=== PATIENT | male | born 1950 | race Caucasian/White ===

== ENCOUNTER → 2024-04-03 | Outpatient (CLI) | payer MEDICARE, OTHER ==
--- NOTE | 2024-04-03 08:48 | CTL ---
EXAMINATION TYPE: CT Low Dose Lung DATE OF EXAM ORDERED: 04/03/2024 History: Lung cancer screening CT DLP: 109.[address] CTDI: 2.4 mGy Automated exposure control for dose reduction was used. Comparison: None TECHNIQUE: Low dose computed tomography scan was performed through the chest at 1 mm thick sections and reconstructed images in multiple planes at 1 mm and [address] DIAGNOSTIC QUALITY: Satisfactory FINDINGS: There are scattered sub-4 mm pulmonary nodules.. There is no suspicious lung mass or nodule. There is no abnormal airspace/consolidative density or abnormal interstitial density. There is no pleural effusion or pleural thickening or pneumothorax. The great vessels chest are normal. There is no mediastinal, hilar or axillary adenopathy. There is no cardiomegaly. Limited scanning through the upper abdomen reveals no gross stability. No focal osseous lesions are seen. IMPRESSION: 1. Lung RADS category 2 benign findings. Continue routine screening at yearly intervals. 2. No acute cardiopulmonary disease.
== END | disposition home or self-care (01) ==
LOC: RADCTMAIN 07:01
PROVIDERS: ATTEND Family Medicine
DX: Z12.2 Encounter for screening for malignant neoplasm of respiratory organs (principal)
CPT/HCPCS: 71271